=== PATIENT | female | born 1965 | race Caucasian/White ===

== ENCOUNTER 2023-01-26 14:56 | Emergency (ER) | payer OTHER ==
[~2023-01-26] VITALS: Ht 167.6 cm; Wt 73.5 kg
--- NOTE | 2023-01-26 15:37 | NUR ---
PT IS IN ROOM #2B. DR JOHNSON EVALUATED THE PT.
[2023-01-26] MEDS ORDERED: ONDANSETRON ODT 4 MG TAB.RAPDIS ONE (15:39)
[2023-01-26] MEDS ORDERED: OXYCODONE HCL 5 MG TABLET ONE (15:40)
[2023-01-26] MEDS ORDERED: OXYCODONE HCL 5 MG TABLET PO ONE (15:45)
[2023-01-26] MEDS ORDERED: MAG HYDROX/AL HYDROX/SIMETH 30 ML LIQUID UDC PO ONE (15:45)
[2023-01-26] MEDS ORDERED: ONDANSETRON ODT 4 MG TAB.RAPDIS SL ONE (15:45)
[2023-01-26 16:13] LABS: MEAN CORPUSCULAR HEMOGLOBIN 30.8 uug (24.7-32.8); MEAN CORPUSCULAR VOLUME 93.7 fL (75.5-95.3); PLATELET COUNT (AUTO) 324 K/uL (179-408)
[2023-01-26] MEDS ORDERED: MAG HYDROX/AL HYDROX/SIMETH 30 ML LIQUID UDC ONE (16:17)
[2023-01-26 16:31] LABS: CARBON DIOXIDE 29 mmol/L (21-32); CHLORIDE 98 mmol/L (98-107); CREATININE 0.4 mg/dL (0.6-1.3); GLUCOSE 103 mg/dL (74-106); POTASSIUM 3.8 mmol/L (3.5-5.1); UREA NITROGEN, BLOOD 7 mg/dL (7-18)
[2023-01-26 16:43] LABS: ALANINE AMINOTRANSFERASE 31 U/L (14-59); ALKALINE PHOSPHATASE 91 U/L (50-136); ASPARTATE AMINOTRANSFERASE 17 U/L (15-37); BILIRUBIN,DIRECT 0.1 mg/dL (0.0-0.2); BILIRUBIN,TOTAL 0.5 mg/dL (0.2-1.0); TOTAL PROTEIN, SERUM 7.8 g/dL (6.4-8.2)
[2023-01-26] MEDS ORDERED: FAMOTIDINE. 20 MG/2 ML VIAL IV ONE ×2 (17:14→17:15)
--- NOTE | 2023-01-26 18:28 | NUR ---
PT WAS D/C'd TO HOME. D/C INSTRUCTIONS GIVEN TO THE PT BY DR JOHNSON.
[2023-01-26 18:29] VITALS: BP 128/76
== END 2023-01-26 18:35 | disposition home or self-care (01) ==
LOC: ER 15:00
DX: R07.89 Other chest pain (principal); K21.9 Gastro-esophageal reflux disease without esophagitis; E03.9 Hypothyroidism, unspecified; I10 Essential (primary) hypertension; E78.5 Hyperlipidemia, unspecified; Z91.048 Other nonmedicinal substance allergy status
CPT/HCPCS: 99285; 96374; 71045; 80076; 80048; 83880; 83690; 84443; 85025; 84484 ×2; 36415; 93005 ×2; J3490; A4663; Q0162